=== PATIENT | male | born 1950 | race Caucasian/White ===

== ENCOUNTER → 2016-09-07 | Outpatient (CLI) | payer MEDICARE, BC ==
--- NOTE | 2016-09-07 22:24 | PN ---
This patient is coming in for a compliancy check. The patient was diagnosed having JOSHUA with an AHI of 33, considered to be severe, especially in a supine body position. The patient is on CPAP therapy and currently utilizing CPAP at a pressure of 11 cm of water with a C-Flex of 3. In his compliancy followup today, the patient has been using the CPAP every night, averaging around 7 hours and 18 minutes. The leak factor is 0 and his AHI while on treatment is down to 5. Treatment has been very successful and the patient has no major complaints for now. His treatment has been successful as such. His current vitals: His blood pressure is 160/98, pulse 84, respirations 16, weight is 209, temperature 97.2. GENERAL APPEARANCE: Calm, comfortable. HEENT: Negative for JVD. There is no goiter or neck mass. Crowding of posterior pharynx. LUNGS: Clear to auscultation. HEART: Heart sounds are regular rate and rhythm. Normal S1, S2. ABDOMEN: Soft, nontender. No organomegaly. EXTREMITIES: No edema. No cyanosis or clubbing. IMPRESSION: 1. Symptomatic obstructive sleep apnea, severe, with apnea-hypopnea index of 33, worse supine. 2. Chronic hypersomnia. 3. Hypertension. PLAN: Treatment is successful. The patient is clinically much improved, much more awake and alert. Continue the treatment at the same level of pressure. See me back in a year's time in followup, earlier if needed.
== END ==
LOC: SLEEP 12:55
PROVIDERS: ATTEND Internal Medicine Critical Care Medicine
DX: G47.33 Obstructive sleep apnea (adult) (pediatric) (principal); G47.10 Hypersomnia, unspecified; I10 Essential (primary) hypertension; Z99.89 Dependence on other enabling machines and devices

== ENCOUNTER → 2018-03-07 | Outpatient (CLI) | payer MEDICARE ==
--- NOTE | 2018-03-07 18:47 | PN ---
PROGRESS NOTE This is a 68-year-old male patient coming in for an annual check regarding his JOSHUA treatment. The patient was diagnosed having severe JOSHUA with an AHI of 33 and is currently on CPAP pressure of 11 cm of water. He is using his CPAP successfully and he continues to benefit from the treatment. At times he feels that he would benefit from a higher pressure, knowing that he is having some occasional snoring. I checked his CPAP compliancy and he is using his CPAP machine every night without any interruption. His CPAP use for more than 4 hours is 100% of the time. He has been averaging around 7.4 hours of CPAP use per night. His leak factor is 0 L/minute and his AHI while on treatment is down to 4.4. He is doing well otherwise. His weight is down. He used to weigh around 209 pounds and currently is down to 195. No tiredness or fatigue during the day. He is alert and awake and does not fall asleep while driving or doing routine day-to-day activities. REVIEW OF SYSTEMS: Twelve-point review of systems was done. Positive findings were all mentioned above in the history of present illness. PHYSICAL EXAMINATION: BP is 142/89, pulse 76, respirations 16, temperature 97.5, saturation 97% on room air. Weight is 198. Height is 5 feet 9 inches. BMI is 28.8. GENERAL APPEARANCE: Calm, comfortable. Head is atraumatic, normocephalic. NECK: Supple. There is no JVD. No goiter or neck masses. LUNGS: Clear to auscultation. HEART: Heart sounds are regular rate and rhythm. Normal S1, S2. No S3, S4. No murmurs. ABDOMEN: Soft, nontender. No organomegaly. EXTREMITIES: No edema. No cyanosis or clubbing. NEUROLOGIC: Alert and oriented x3. No focal neurological deficits. PSYCHIATRIC: Negative for any active anxiety or depression. SKIN: Negative for any wounds or ulceration. IMPRESSION: 1. Severe obstructive sleep apnea. AHI of 33, currently on CPAP pressure of 11. 2. Hypersomnia, recovered. 3. Obesity with interval weight loss. Current BMI is down to 28.8. 4. Hypertension. PLAN: I discussed the findings with the patient. Treatment is essentially successful. The patient wanted to utilize higher pressure. I used a higher pressure of 12 cm of water on a trial basis, and he liked it today in the office. He wanted to keep the pressure at 12 cm of water and I do not have any objection to that. He is using an Airtouch medium-sized full-face mask which will be renewed. His weight is down by around 10 pounds and the patient is quite happy with his clinical response. We will see him back in a year's time, earlier if needed. For now, treatment is successful and the patient continues to benefit from the treatment. His pressure will be set at 12 for now. MMODL / IJN: [id number] /
== END | disposition home or self-care (01) ==
LOC: SLEEP 14:58
PROVIDERS: ATTEND Internal Medicine Critical Care Medicine
DX: G47.33 Obstructive sleep apnea (adult) (pediatric) (principal); I10 Essential (primary) hypertension; E66.9 Obesity, unspecified; Z68.28 Body mass index [BMI] 28.0-28.9, adult; Z99.89 Dependence on other enabling machines and devices

== ENCOUNTER → 2019-03-13 | Outpatient (CLI) | payer MEDICARE ==
--- NOTE | 2019-03-13 14:47 | P.PN ---
Subjective Progress Note Date: 03/13/19 Principal diagnosis: JOSHUA This is a 9-year-old male patient is coming in for an annual checkup regarding his obstructive sleep apnea treatment. This patient has severe JOSHUA with an AHI of 33 and the patient was being treated with a CPAP pressure of 12 cm of water. Note that his been extremely compliant with his CPAP therapy. In fact he denies having any complaints over the past 12 months in terms of his JOSHUA treatment. He hasn't been able to lose weight. Note that he has gained probably around 10 pounds since his original diagnosis. His current weight is up to 202. His BMI is up to 30.2. Despite all this, is very compliant with his CPAP unit. His been averaging around 7.4 hours of CPAP use per night. CPAP use for more than 4 hours approaching 100%. He has a leak of 0 L per minute and his AHI while on treatment is down to 3.5. Is using in that touch fullface mask medium size which is quite comfortable for him. Is a poor score is down to 9. He has no new complaints. No sleepiness or tiredness during the day. No snoring while on the CPAP unit. His driving his car without any major difficulties. No nighttime palpitation or chest pain or shortness of breath. No altered mentation. No morning headaches. No nausea or vomiting. No gas or flatus. A 14 point review of system was done and the positive findings are almost above history of present illness. Of significance is the absence of any anxiety or depression, panic, claustrophobia. No PTSD. No cardiac arrhythmias. No swelling lower extremities. No signs of any congestion heart failure, cardiac arrhythmias, syncope, atrial fibrillation, or any other cardiovascular events. Objective - Exam BP is 135/82, pulse is 80, respirations 16, temperature 97.4, height is 58, weight is 202 and BMI 30.2 with a pulse ox of 95% on room air The patient appeared well nourished and normally developed. Vital signs as documented. Head exam is unremarkable. No scleral icterus or corneal arcus noted. Neck is without jugular venous distension, thyromegaly, or carotid bruits. The patient is a Mallampati class IV. Carotid upstrokes are brisk bilaterally. Lungs are clear to auscultation and percussion. Cardiac exam reveals the PMI to be normally sized and situated. Rhythm is regular. First and second heart sounds normal. No murmurs, rubs or gallops. Abdominal exam reveals normal bowel sounds, no masses, no organomegaly and no aortic enlargement. Extremities are nonedematous and both femoral and pedal pulses are normal.Examination of the skin revealed no evidence of significant rashes, suspicious appearing nevi or other concerning lesions. Neurologically awake and alert and there is no focal neurological deficits. Assessment and Plan Plan: 1 obstructive sleep apnea severe with an AHI of 33. The patient is currently on a CPAP pressure of 12 cm of water 2 hypersomnia, improving, Hanover score is down to 9 3 hypertension. Plan Continue the patient's CPAP supplies. The patient is using and as such fullface mask medium size. Keep CPAP therapy is same level of pressure. Encourage weight loss. Abdomen good sleep hygiene measures. She was successful for now. The patient has no specific complaints. No new onset of medical positive comorbidities. His BP is under good control. Patient will see me back in the time of follow-up, earlier if needed.
== END ==
LOC: SLEEP 13:54
PROVIDERS: ATTEND Internal Medicine Critical Care Medicine
DX: G47.33 Obstructive sleep apnea (adult) (pediatric) (principal); I10 Essential (primary) hypertension; Z99.89 Dependence on other enabling machines and devices

== ENCOUNTER → 2020-04-15 | Outpatient (CLI) | payer MEDICARE ==
--- NOTE | 2020-04-15 15:50 | PN ---
PROGRESS NOTE A 70-year-old male patient coming in for an annual check regarding obstructive sleep apnea. The patient has severe disease with an AHI of 33, his weight is stable at 203 pounds. He continues to be successfully treated with a CPAP pressure of 12 cm of water. He has also had a temperature of tubing at 68 degrees Fahrenheit and humidity level is at 4. He has done well over the past year. His blood pressure is under good control. No angina. No palpitation. No shortness of breath. No cardiac arrhythmias. Based on the compliance data, the patient has been utilizing his CPAP machine more than 4 hours 100% of the time. He has been averaging around 7.5 hours of CPAP use per night. He is utilizing an AirTouch F20 medium size fullface mask. His leak is in order of 0 L/minutes. His AHI is down to 4. No snoring while on the treatment. No gastric distention. No flatus. No heartburn over night. Waking up refreshed and alert during the day. No naps during the day. No episodes of falling asleep while driving. No other significant events the past one year. REVIEW OF SYSTEMS: Fourteen-point review of system was done positive findings are mentioned in history of present illness, otherwise negative. PHYSICAL EXAMINATION: BP 144/86, pulse 88, respirations 16, temperature 98.3 saturation 98% on room air. Height is 5, 8, weight is 203, BMI is 30.2. Wilburton score is 14. GENERAL APPEARANCE: Calm, comfortable. HEAD: Atraumatic, normocephalic. NECK: Supple, Mallampati class 4. No goiter or neck masses. LUNGS: Clear to auscultation. HEART: Heart sounds are regular rate and rhythm. Normal S1, S2. No S3, S4. No murmurs. ABDOMEN: Soft, nontender. No organomegaly. EXTREMITIES: No edema, no cyanosis or clubbing. IMPRESSION: 1. Severe obstructive sleep apnea, AHI of 33. Contagion continues to be successfully treated with a CPAP pressure of 12 cm of water. Compliance data was checked. 2. Hypersomnia, improved. 3. Hypertension. PLAN: 1. Encourage weight loss. 2. Continue CPAP therapy at a pressure of 12. 3. Keep the humidity at 4 with a temperature of tubing at 68 degrees. 4. Proceed with refilling the supplies including the AirTouch fullface mask, medium size. 5. Optimize sleep hygiene measures. 6. See me back in a year's time in followup, earlier if needed. Treatment is successful for now. MMODL / IJN: [id number] /
== END | disposition home or self-care (01) ==
LOC: SLEEP 14:28
PROVIDERS: ATTEND Internal Medicine Critical Care Medicine
DX: G47.33 Obstructive sleep apnea (adult) (pediatric) (principal); G47.10 Hypersomnia, unspecified; I10 Essential (primary) hypertension; Z99.89 Dependence on other enabling machines and devices

== ENCOUNTER → 2021-10-06 | Outpatient (CLI) | payer MEDICARE ==
--- NOTE | 2021-10-06 15:03 | P.PN ---
Subjective Progress Note Date: 10/06/21 On 10/06/2021, seeing this patient for a follow-up of the sleep center. The patient is diagnosed having obstructive sleep apnea, severe with an AHI of 33 at baseline. Over the past 1 year, with aggressive diet, the patient has lost significant amount of weight and he used to weigh 203 pounds and currently is down to 166 pounds. He is undergoing diet. He is feeling very well. He remains on a CPAP therapy at a pressure of 12 cm of water. He is using the air touch fullface mask medium size. I checked the compliance data information from his machine. He has a functioning ResMed unit. Based on the 30 day compliance data, I noted that the patient's AHI is up to 6.4. This is despite his weight loss. The patient has been utilizing his machine every night. His compliance for more than 4 hours of 100%. His average CPAP uses around 7.3 hours per night. He has no other new complaints. He feels well. He is rested. He is waking up refreshed. No snoring while on the CPAP. No chest pain. No heartburn. No sleep fragmentation. His [id number] has been diagnosed having colon cancer and the patient is under significant amount of stress. His BP is under adequate control. He typically gets a hypertension when he comes in to the doctor's office. His home blood pressure monitoring 7 adequate for this patient. Objective - Exam BP is 150/82, pulse is 67, respirations 16, temperature 96.7, saturation 99% on room air, Bellbrook scores a 13 The patient appeared well nourished and normally developed. Vital signs as documented. Head exam is unremarkable. No scleral icterus or corneal arcus noted. Neck is without jugular venous distension, thyromegaly, or carotid bruits. Carotid upstrokes are brisk bilaterally. Lungs are clear to auscultation and percussion. Cardiac exam reveals the PMI to be normally sized and situated. Rhythm is regular. First and second heart sounds normal. No murmurs, rubs or gallops. Abdominal exam reveals normal bowel sounds, no masses, no organomegaly and no aortic enlargement. Extremities are nonedematous and both femoral and pedal pulses are normal.Examination of the skin revealed no evidence of significant rashes, suspicious appearing nevi or other concerning lesions.Neurologically, the patient is awake and alert and the patient does not have any focal neurological deficit. Cranial nerves are essentially intact. Assessment and Plan Plan: 1. Obstructive sleep apnea, severe with an AHI of 33. The treatment has been slightly suboptimal as the patient had an AHI of 6.4 while on treatment. This is despite his ongoing weight loss. He is currently on a pressure of 12 cm of water. 2 obesity with interval weight loss secondary to diet 3 hypersomnia, current Bellbrook scores a 13 4 hypertension, currently under adequate control 5 hyperlipidemia, improved with diet and weight loss Plan I'm going to switch this patient in APAP mode. I'm going to set him up with a minimum pressure of 5 and a maximum pressure of 15. The patient will be kept on his air touch fullface mask medium size. We will monitor his AHI while on treatment. We will measure his average pressure the note by the machine within the next 1 year. Keep on following strict sleep hygiene measures. We'll continue to follow going to see the patient in follow-up in a year's time. Anticipate further improvement with a new APAP mode.
== END ==
LOC: SLEEP 14:20
PROVIDERS: ATTEND Internal Medicine Critical Care Medicine
DX: G47.33 Obstructive sleep apnea (adult) (pediatric) (principal); E66.9 Obesity, unspecified; I10 Essential (primary) hypertension; E78.5 Hyperlipidemia, unspecified; Z99.89 Dependence on other enabling machines and devices

== ENCOUNTER → 2022-11-16 | Outpatient (CLI) | payer MEDICARE ==
--- NOTE | 2022-11-16 16:37 | P.PN ---
Progress Note - Text Progress Note Date: 11/16/22 On today's evaluation of April 2023, the patient is being seen in follow-up in the sleep Center regarding obstructive sleep apnea. Since his last evaluation, the patient has lost weight. Currently is down to 171 pounds. The patient is interested to see if there is ongoing me for CPAP therapy. Nevertheless, despite his low body weight, the patient carries an AHI of 33 at baseline. He has been treated with CPAP at a pressures of 5/15 cm of water, APAP mode. Based on the compliance data that has been collected between 10/10/2021 and 11/08/2021, the patient's overall compliancy has been in the order of 100%, the patient is averaging about 7 hours and 19 minutes of CPAP use per night, the patient's P 95th percentile pressure is at 14.5, the patient's AHI is down to 6 and he does have some residual obstructive respiratory events. Nevertheless, the patient is interested in discontinuing the treatment as the patient is feeling better while being off treatment. His is currently going through chemotherapy as the patient has been diagnosed having cholangiocarcinoma. The patient himself has no complaints. He has some limited fatigue. No sleepiness during the day. His weight has been fluctuating. His blood pressure is also has been fluctuating and this probably related to anxiety. No hypersomnia or sleepiness. His [place]ell[place] score is down to 4. BP is 151/85, pulse is 77, respirations 12, temperature is 98.0 and the patient's Estelline score is at 4 and the weight is 171. Pulse ox is 97% on room air oxygen. The patient appeared well nourished and normally developed. Vital signs as documented. Head exam is unremarkable. No scleral icterus or corneal arcus noted. Neck is without jugular venous distension, thyromegaly, or carotid bruits. Carotid upstrokes are brisk bilaterally. Lungs are clear to auscultation and percussion. Cardiac exam reveals the PMI to be normally sized and situated. Rhythm is regular. First and second heart sounds normal. No murmurs, rubs or gallops. Abdominal exam reveals normal bowel sounds, no masses, no organomegaly and no aortic enlargement. Extremities are nonedematous and both femoral and pedal pulses are normal.Examination of the skin revealed no evidence of significant rashes, suspicious appearing nevi or other concerning lesions.Neurologically, the patient is awake and alert and the patient does not have any focal neurological deficit. Cranial nerves are essentially intact. Assessment Obstructive sleep apnea, severe at baseline with an AHI of 33. The patient has lost weight and the patient is interested in reevaluation. Chronic hypersomnia, recovered and the patient's upper score is at 4 Successful APAP therapy with the above-mentioned settings Hypertension Hyperlipidemia Plan Based on the ongoing weight loss which is probably the order of 30 pounds, I'm going to order a reevaluation with a home sleep study. I still think that the patient is a need for CPAP therapy at the patient's compliancy data indicates that the patient is still requiring significant amount of support while being on treatment. The P 95th percentile pressure still elevated. Nevertheless, it's reasonable to repeat the study and decide if ongoing treatment is needed. For the time being, I told the patient to continue the treatment at home sleep study is completed. We'll continue to follow.
== END ==
LOC: SLEEP 15:20
PROVIDERS: ATTEND Internal Medicine Critical Care Medicine
DX: G47.33 Obstructive sleep apnea (adult) (pediatric) (principal); E78.5 Hyperlipidemia, unspecified; I10 Essential (primary) hypertension; Z99.89 Dependence on other enabling machines and devices
CPT/HCPCS: 99212